=== PATIENT | female | born 1960 | race Two or more races ===

== ENCOUNTER 2024-11-14 06:45 | Day surgery (SDC) | payer MEDICAID, SELFPAY ==
[2024-11-13 09:50] VITALS: BMI 38.1
[2024-11-14] VITALS (12 sets, daily range): BP systolic 120–151; BP diastolic 28–93; PULSE 72–85; RESP 13–20; TEMP 36.6–36.7; O2SAT 95–98; BMI 36.8
[2024-11-14] MEDS: SODIUM CHLORIDE 0.9% 500 ML 500 ML 100 ML IV (07:25)
[2024-11-14] MEDS: DiphenhydrAMINE INJ 50 MG/ML VIAL 25 MG IV (07:30)
[2024-11-14] MEDS: MIDAZOLAM INJ 1 MG/ML VIAL 2 ML (ASD USE ONLY) 2 MG IV (07:33)
[2024-11-14] MEDS: fentaNYL CIT INJ 50 mCg/ML AMP 2ML (ASD USE ONLY) IV (07:36)
[2024-11-14] MEDS: SIMETHICONE 40 MG/0.6 ML ORAL SYRINGE PO (07:38)
== END 2024-11-14 08:30 | disposition home or self-care (01) ==
PROVIDERS: PCP Physician Assistant; Referring Provider Surgery; Visit Provider Surgery
PROC: 0DBE8ZX Excision of Large Intestine, Via Natural or Artificial Opening Endoscopic, Diagnostic (ICD-10-PCS; CPT 45380; principal; 2024-11-14 07:30)
DX: Z12.11 Encounter for screening for malignant neoplasm of colon (principal); K62.89 Other specified diseases of anus and rectum; D12.3 Benign neoplasm of transverse colon; K64.1 Second degree hemorrhoids; K57.30 Diverticulosis of large intestine without perforation or abscess without bleeding
CPT/HCPCS: 45380; A4649; J1200; J2250; J3010; J7040; A9270